=== PATIENT | female | born 1940 | race Asian ===

== ENCOUNTER 2022-05-17 12:25 | Emergency (ER) | payer OTHER ==
[~2022-05-17] VITALS: Ht 147.3 cm; Wt 48.0 kg
[2022-05-17] MEDS ORDERED: SODIUM CHLORIDE 0.9% 1000ML BAG (SEPSIS BOLUS) IV ONE (12:45)
[2022-05-17] MEDS ORDERED: VANCOMYCIN 1G PREMIX 200 ML IV ONE (12:45)
[2022-05-17] MEDS ORDERED: PIPERACILLIN/TAZ 3.375G PREMIX 50 ML IV ONE (12:45)
[2022-05-17 14:02] LABS: HEMATOCRIT. 38.8 % (36.0-48.0); HEMOGLOBIN. 12.7 g/dL (12.0-16.0); MEAN CORPUSCULAR HEMOGLOBIN 28.9 pg (28.0-32.0); MEAN CORPUSCULAR VOLUME 88.7 fL (81.0-99.0); MEAN PLATELET VOLUME 7.7 fl (7.4-10.4); PLATELET 148 x1000/uL (130-400); RED BLOOD CELL COUNT 4.38 mill/uL (4.2-5.4); RED CELL DISTRIBUTION WIDTH 16.3 % (11.6-14.6)
[2022-05-17 14:08] LABS: CHLORIDE 98 mEq/L (98-107)
[2022-05-17 16:23] LABS: PLATELET ESTIMATE NORMAL
[2022-05-17] MEDS ORDERED: SODIUM CHLORIDE 0.9% 1,000 ML IV ONE (17:30)
[2022-05-18 00:08] VITALS: BP 149/65
== END 2022-05-17 23:50 | disposition short-term general hospital (02) ==
LOC: ER 12:25
DX: A41.9 Sepsis, unspecified organism (principal); L89.159 Pressure ulcer of sacral region, unspecified stage; E86.0 Dehydration; R00.0 Tachycardia, unspecified; C34.90 Malignant neoplasm of unspecified part of unspecified bronchus or lung; C79.9 Secondary malignant neoplasm of unspecified site; Z92.3 Personal history of irradiation; Z20.822 Contact with and (suspected) exposure to COVID-19
CPT/HCPCS: 36415; 71045; 80053; 83605; 84484; 85025; 87040; 87426; 93005; 96365; 96375; 99285; C9803; J2543; J3370; J7030